=== PATIENT | male | born 1970 | race Two or more races ===

== ENCOUNTER 2017-02-23 17:12 | Emergency (ER) | payer MEDICAID ==
[~2017-02-23] VITALS: Ht 175.3 cm; Wt 102.5 kg
[2017-02-23 17:16] VITALS: BP 136/104
== END 2017-02-23 19:05 | disposition home or self-care (01) ==
LOC: ER 17:18
DX: S52.511A Displaced fracture of right radial styloid process, initial encounter for closed fracture (principal); I10 Essential (primary) hypertension; W18.39XA Other fall on same level, initial encounter; Y93.89 Activity, other specified; Y92.89 Other specified places as the place of occurrence of the external cause; Y99.8 Other external cause status
CPT/HCPCS: 29125; 73110